=== PATIENT | male | born 2005 | race Caucasian/White ===

== ENCOUNTER → 2024-09-14 12:50 | Outpatient (REF) | payer BC, SELFPAY | LOC: HWRCS 12:50 | PROVIDERS: ATTENDING PHYSICIAN Internal Medicine Interventional Cardiology; FAMILY PHYSICIAN Family Medicine | DX: R00.2 Palpitations (principal) | CPT/HCPCS: 93306 ==

== ENCOUNTER → 2024-11-15 13:24 | Outpatient (REF) | payer BC, SELFPAY | LOC: RCS 13:24 | PROVIDERS: ATTENDING PHYSICIAN Nurse Practitioner; FAMILY PHYSICIAN Family Medicine | DX: R00.2 Palpitations (principal); R07.89 Other chest pain | CPT/HCPCS: 93017; 93350 ==

== ENCOUNTER 2024-12-22 01:33 | Emergency (ER) | payer BC, SELFPAY ==
[2024-12-22 01:38] VITALS: BP 149/87
[2024-12-22 01:57] LABS: % Basophils 0.5 % (0-2); % Eosinophils 1.3 % (0-6); % Immature Granulocytes 0.3 % (0-0.5); % Lymphocytes 30.2 % (20.5-51.1); % Neutrophils 59.7 % (42.2-75.2); Absolute Eosinophils 0.1 10^3/uL (0-0.7); Absolute Lymphocytes 2.4 10^3/uL (1.2-3.4); Absolute Monocytes 0.6 10^3/uL (0.1-0.6); Absolute Neutrophils 4.7 10^3/uL (1.4-6.5); Hematocrit 43.5 % (39.0-52.0); Hemoglobin 14.6 g/dL (13.0-18.0); Mean Corp Hgb Conc. 33.6 g/dL (33.0-37.0); Mean Corpuscular Hgb 29.3 pg (27.0-31.0); Mean Corpuscular Volume 87.2 fL (80.0-94.0); Mean Platelet Volume 9.7 fL (7.4-10.4); Nucleated Red Blood Cells % 0 % (-); Platelet Count 205 10^3/uL (130-400); Red Blood Cell Count 4.99 10^6/uL (4.70-6.10); Red Cell Dist. Width 12.3 % (11.5-14.5); White Blood Cell Count 7.8 10^3/uL (4.8-10.8)
[2024-12-22 02:26] LABS: ALT (SGPT) 40 U/L (0-50); AST (SGOT) 28 U/L (17-59); Albumin 5.3 g/dl (3.5-5.0); Alkaline Phosphatase 69 U/L (38-126); Blood Urea Nitrogen 15 mg/dl (9-20); Calcium 10.4 mg/dl (8.4-10.2); Carbon Dioxide 28 mmol/L (22-30); Chloride 100 mmol/L (98-107); Glucose 110 mg/dl (70-99); Potassium 3.9 mmol/L (3.5-5.1); Sodium 141 mmol/L (135-145); Total Bilirubin 1.6 mg/dl (0.2-1.3); Total Protein 7.8 g/dl (6.3-8.2); eGFR > 60.00
[2024-12-22 02:38] LABS: Troponin I < 0.012 ng/ml
[2024-12-22 04:07] VITALS: BP 126/62
[2024-12-22 04:35] VITALS: BMI 30.4
[2024-12-22 05:00] VITALS: BP 121/54
[2024-12-22 06:00] VITALS: BP 113/55
--- NOTE | 2024-12-22 06:02 | ED.GENMED ---
History of Present Illness
General
Chief Complaint: Heart Rate Problem
Time Seen by Provider: 12/22/24 06:01
History of Present Illness
History of Present Illness:
TIME OF INITIAL ENCOUNTER: 6:05 AM
HPI: The patient presents with palpitations. He states that he had two Holter monitors in the past which showed a lot of PACs and PVCs. He estimates that he had about 400 ectopic beats yesterday. He was on metoprolol but states that this caused
him to have higher blood pressure. Losartan was added. He was later switched to Bystolic 5 mg daily. He continues to take 5 mg of Bystolic and losartan. Currently he overall feels improved in the Emergency Department spontaneously. He states he
had a stress echo that was unremarkable.
EXAM:
GENERAL: Well appearing in no distress
HEENT: Moist oral mucosa
CARDIOVASCULAR: No murmurs, normal heart rate, regular rhythm, No chest wall tenderness
PULMONARY: No respiratory distress, breath sounds are clear and equal
ABDOMEN: Soft with no peritoneal signs, no tenderness
NEUROLOGIC: Excellent strength all extremities, no coordination deficits
PSYCHIATRIC: Appropriate mental status, normal insight and judgement
EXTREMITIES: Nontender, no edema, moves all extremities equally
SKIN: No rash, no lesions
NUMBER AND COMPLEXITY OF PROBLEMS ADDRESSED AT THE ENCOUNTER
� Chronic conditions affecting care: Childhood asthma, PACs/PVCs
� Acute Exacerbation and/or Progression of Chronic Illness: This is an acute exacerbation of chronic problem
� Differential Diagnosis includes: PACs, PVCs, electrolyte abnormality, dehydration
AMOUNT AND/OR COMPLEXITY OF DATA TO BE REVIEWED AND ANALYZED
� I performed an independent evaluation of and my interpretation is:
EKG: Sinus 90, baseline artifact, nonspecific ST abnormality with no old to compare
CT:
X-rays:
Laboratory Studies: CBC, chemistries unremarkable however total bili is 1.6 with normal transaminases and alk phos, troponin less than 0.012
Other:
� Review of other/old records: Echo in August 2024 showed top normal LV wall thickness and EF of 65 to 70% otherwise valves are normal
� Clinical information was obtained by an independent historian: None needed
� Prescriptions/Medications Considered but not given: Considered switching back to metoprolol but will continue Bystolic
� Further testing considered but not performed:
RISK OF COMPLICATIONS AND/OR MORBIDITY OR MORTALITY OF PATIENT MANAGEMENT
� Social determinants of health affecting care: Lives at home
� Discussion with other providers:
� Escalation of care including admission/observation vs risk of discharge considered: The patient has an upcoming appointment with cardiology in March. We talked about having him double the Bystolic dose however his blood
pressure and heart rate are borderline I told him to use caution if he were to double the dose 10 mg. He had rare PACs and PVCs in the Emergency Department during my evaluation.
ANY OTHER UPDATES:
Phy Exam
Physical Exam
Physical Exam:
See HPI
Course
Orders/Labs/Results
Orders:
Orders
12/22/24 01:42
Electrocardiogram (*1) Urgent
Reason for Study: Palpitations
EKG- Treatment ONCE
12/22/24 01:51
Complete Blood Count/With Diff Urgent
Comprehensive Metabolic Panel Stat
Troponin I Urgent
Abnormal Lab Results
12/22/24
01:51
Glucose 110 H mg/dl
(70-99)
Calcium 10.4 H mg/dl
(8.4-10.2)
Total Bilirubin 1.6 H mg/dl
(0.2-1.3)
Albumin 5.3 H g/dl
(3.5-5.0)
12/22/24 01:51
12/22/24 01:51
Vital Signs
Initial and Last Documented VS:
Initial Vital Signs
Temp Pulse Resp BP Pulse Ox
36.8 C 88 16 149/87 98
12/22/24 01:38 12/22/24 01:38 12/22/24 01:38 12/22/24 01:38 12/22/24 01:38
Last Documented Vital Signs
Temp Pulse Resp BP Pulse Ox
36.7 C 86 31 126/62 98
12/22/24 04:35 12/22/24 04:30 12/22/24 04:30 12/22/24 04:07 12/22/24 04:35
*Critical Care Note
Total Time (30-74mins, 75-104mins- exclusive of procedures): Not Applicable
ED Attending Note
-
Portions of this chart may have been created with voice recognition software.� Occasional wrong word or��sound alike� substitutions may have occurred due to the inherent limitations of voice recognition software.
Discharge Plan
Departure
Patient Disposition: Home (Routine Discharge)
Date of Disposition: 12/22/24
Time of Disposition: 06:15
Patient with high blood pressure during this ER visit?: Yes
Discharge Problem:
Palpitations
Instructions: Palpitations (DC), BLOOD PRESSURE
Prescriptions:
No Action
cetirizine [Zyrtec] 10 mg Tablet
10 mg PO DAILY PRN (Reason: allergies)
acetaminophen 325 mg Tablet
650 mg PO Q4HPRN PRN (Reason: mild pain) Qty: 30 0RF
ibuprofen 400 mg Tablet
400 mg PO Q6HPRN PRN (Reason: moderate pain) Qty: 30 0RF
oxycodone 5 mg Tablet
5 mg PO Q4HPRN PRN (Reason: severe pain) Qty: 10 0RF
Referrals:
Pierre Donaldson MD [Family Provider] -
Activity Restrictions/Additional Instructions:
On the monitor, you had rare PACs and PVCs. Your blood pressure was initially slightly high at the end was normal prior to discharge. Your heart rate had been in the 80s and then 60s. You could consider doubling the Bystolic dose up to 10 mg
daily (you could take 2 pills at the same time and see how you feel). 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
Interventions
Interventions:
*Risk Screen - Suicide Last Done: 12/22/24 01:38
*General Assessment Last Done: 12/22/24 04:35
*Neglect/Abuse Screening Last Done: 12/22/24 04:35
ED- Fall Risk Assessment Last Done: 12/22/24 04:35
*ED COVID-19 Vaccine History Last Done: 12/22/24 04:35
ED- Cardiac Assessment Last Done: 12/22/24 04:35
ED- Pulmonary Assessment Last Done: 12/22/24 04:35
Discharge Date and Time
Print Language: NEPALI
== END 2024-12-22 06:34 | disposition home or self-care (01) ==
LOC: EMR 01:33
PROVIDERS: Student in an Organized Health Care Education/Training Program; EMERGENCY PHYSICIAN Emergency Medicine; FAMILY PHYSICIAN Family Medicine
DX: R00.2 Palpitations (principal); R03.0 Elevated blood-pressure reading, without diagnosis of hypertension
CPT/HCPCS: 99284; 80053; 84484; 85025; 93005

== ENCOUNTER 2025-03-28 22:23 | Emergency (ER) | payer BC, SELFPAY ==
[2025-03-28 22:26] VITALS: BP 148/84
[2025-03-28 22:47] LABS: % Basophils 0.5 % (0-2); % Eosinophils 1.7 % (0-6); % Immature Granulocytes 0.2 % (0-0.5); % Lymphocytes 30.4 % (20.5-51.1); % Monocytes 8.5 % (1.7-9.3); % Neutrophils 58.7 % (42.2-75.2); Absolute Basophils 0.1 10^3/uL (0-0.2); Absolute Eosinophils 0.2 10^3/uL (0-0.7); Absolute Lymphocytes 2.9 10^3/uL (1.2-3.4); Absolute Monocytes 0.8 10^3/uL (0.1-0.6); Absolute Neutrophils 5.7 10^3/uL (1.4-6.5); Hematocrit 46.6 % (39.0-52.0); Hemoglobin 16.3 g/dL (13.0-18.0); Mean Corpuscular Hgb 29.6 pg (27.0-31.0); Mean Corpuscular Volume 84.7 fL (80.0-94.0); Mean Platelet Volume 9.9 fL (7.4-10.4); Nucleated Red Blood Cells % 0 % (-); Platelet Count 214 10^3/uL (130-400); White Blood Cell Count 9.6 10^3/uL (4.8-10.8)
[2025-03-28 23:02] LABS: ALT (SGPT) 49 U/L (0-50); AST (SGOT) 33 U/L (17-59); Albumin 5.4 g/dl (3.5-5.0); Alkaline Phosphatase 73 U/L (38-126); Blood Urea Nitrogen 12 mg/dl (9-20); Calcium 10.2 mg/dl (8.4-10.2); Carbon Dioxide 25 mmol/L (22-30); Chloride 106 mmol/L (98-107); Glucose 96 mg/dl (70-99); Lipase 73 U/L (23-300); Sodium 143 mmol/L (135-145); Total Bilirubin 1.2 mg/dl (0.2-1.3); Total Protein 8.7 g/dl (6.3-8.2); eGFR > 60.00
--- NOTE | 2025-03-29 00:21 | ED.GENMED ---
History of Present Illness
General
Chief Complaint: Abdominal Symptoms
Source: patient
Exam Limitations: none
Time Seen by Provider: 03/29/25 00:17
Nursing documentation reviewed up to this point in time: agreed with
History of Present Illness
History of Present Illness:
This is a 19-year-old male with a past medical history of cholecystitis who presents to the emergency department today with concerns of abdominal pain. Patient reports that he feels on the right side of his abdomen and compares it to when he had
biliary colic and sludge. He has since had his gallbladder removed. Patient also feels like a few days ago, he started to notice yellowing of his whites of his eyes. Patient has no nausea or vomiting associated with this. He has no fevers or
chills. He denies any radiation of the pain to the back. He denies any sick contacts. Patient reports that the pain seems to get worse after eating and when he eats, he feels very full and feels bloated. Since starting, the severity of the pain
is improved but he feels like the pain is lingering and he also feels like he has been more fatigued recently and feels generalized brain fog. Patient denies any paresthesias, difficulty ambulating, headaches, neck pain. Patient denies any visual
changes.
Review of Systems
Review of Systems
All Other Systems: ROS reviewed and negative except as documented in HPI and ROS
Phy Exam
Physical Exam
Physical Exam:
General: Patient is well appearing and in no acute distress; non-toxic
Skin: Warm and dry, no rashes or lesions
Head: Normocephalic, atraumatic
Eyes: Sclera non-icteric. EOMs intact.
Cardiac: Regular rate and rhythm, no murmurs
Pulm: Normal respiratory effort, no wheezes, rales, rhonchi
Abdomen: Generalized abdominal tenderness palpation but no guarding, abdomen soft, normoactive bowel sounds
Neuro: CN II-XII intact, no focal neurologic deficits.
Psychiatric: Appropriate mood and affect.
Course
Orders/Labs/Results
Orders:
Orders
03/28/25 22:28
IV Insert/Care/Rem.- Treatment PRN
03/28/25 22:40
Complete Blood Count/With Diff Urgent
Comprehensive Metabolic Panel Urgent
Lipase Urgent
03/29/25 00:38
CT Abd/pel Without Iv Or Oral Urgent
Comment: pt allergic to contrast, difficulty breathing, ok to change per PA
Reason For Exam: diffuse abdominal pain
0.9% Sodium Chloride 500 ml [Nss] 500 ml IV BOLUS
Ketorolac [Toradol] 15 mg IV NOW STA
Ondansetron Injectable [Zofran] 4 mg IV NOW STA
Abnormal Lab Results
03/28/25
22:40
Absolute Monos (auto) 0.8 H 10^3/uL
(0.1-0.6)
Total Protein 8.7 H g/dl
(6.3-8.2)
Albumin 5.4 H g/dl
(3.5-5.0)
03/28/25 22:40
03/28/25 22:40
Vital Signs
Initial and Last Documented VS:
Initial Vital Signs
Temp Pulse Resp BP Pulse Ox
97.6 F 81 19 148/84 98
03/28/25 22:26 03/28/25 22:26 03/28/25 22:26 03/28/25 22:26 03/28/25 22:26
Last Documented Vital Signs
Temp Pulse Resp BP Pulse Ox
97.6 F 81 19 105/56 97
03/28/25 22:26 03/28/25 22:26 03/28/25 22:26 03/29/25 04:00 03/29/25 04:30
MDM/Problems Addressed
Differential Diagnosis Includes:
Differentials include stratus, GERD, choledocholithiasis, gastroenteritis, IBS
MDM/Problems Addressed:
This is a 19-year-old male with past ministry of asthma who presents emergency department today with concerns of diffuse abdominal pain, and feelings of brain fog. Patient also notes that he had scleral icterus a few days ago which resolved. On
physical exam, he is well-appearing no acute distress. His abdomen is soft but he does have some upper abdominal tenderness. His vitals are stable, he is afebrile. Did offer Toradol for pain but he refused. Zofran did help with nausea. No
identifiable causes of brain fog however in light of normal labs, did recommend following up with primary care provider. In light of his pain being worse after eating and having sensation of fullness in his upper abdomen,, I did recommend a trial
of pantoprazole for 2 weeks. Patient does have a gastroenterology appointment next month for follow-up. Patient stable for discharge per
Chronic conditions affecting care:
asthma
*Pulse Oximetry
Patient hypoxic: no
*Critical Care Note
Total Time (30-74mins, 75-104mins- exclusive of procedures): Not Applicable
Data Reviewed
Review of Other/Old Records Reveals: Records (Reviewed discharge summary from 06/28/2022 patient seen for biliary colic had passed medical history of abdominal pain was seen in the ER had elevated liver enzymes was found to have gallstone
pancreatitis) and Discharge Summary (Reviewed discharge summary from 06/28/2022 patient seen for biliary colic was found to have gallstone pancreatitis)
ED Attending Note
-
Portions of this chart may have been created with voice recognition software.� Occasional wrong word or��sound alike� substitutions may have occurred due to the inherent limitations of voice recognition software.
Discharge Plan
Departure
Patient Disposition: Home (Routine Discharge)
Date of Disposition: 03/29/25
Time of Disposition: 04:29
Patient with high blood pressure during this ER visit?: Yes
Condition: Good
Discharge Problem:
Abdominal pain
Instructions: Abdominal Pain, BLOOD PRESSURE
Prescriptions:
New
pantoprazole 20 mg tablet,delayed release (DR/EC)
20 mg PO DAILY 14 Days Qty: 14 0RF
No Action
cetirizine [Zyrtec] 10 mg Tablet
10 mg PO DAILY PRN (Reason: allergies)
acetaminophen 325 mg Tablet
650 mg PO Q4HPRN PRN (Reason: mild pain) Qty: 30 0RF
ibuprofen 400 mg Tablet
400 mg PO Q6HPRN PRN (Reason: moderate pain) Qty: 30 0RF
oxycodone 5 mg Tablet
5 mg PO Q4HPRN PRN (Reason: severe pain) Qty: 10 0RF
Referrals:
Pierre Donaldson MD [Family Provider, Family Practice]
Activity Restrictions/Additional Instructions:
Pantoprazole has been sent to your pharmacy. Please take 1 tablet once daily for 2-week trial. Please follow-up with gastroenterology next month.
PLEASE RETURN EMERGENCY DEPARTMENT SHOULD YOU DEVELOP ACUTE WORSENING OF YOUR SYMPTOMS, DIZZINESS,, FEVERS OR CHILLS, INTRACTABLE NAUSEA OR VOMITING, LIGHTHEADEDNESS, HEADACHE, CHEST PAIN, PAIN SPELLS, OR ANY OTHER SIGNS OR SYMPTOMS WORRISOME TO YOU.
Interventions
Interventions:
*Risk Screen - Suicide Last Done: 03/28/25 22:26
*General Assessment Last Done: 03/29/25 01:01
*Neglect/Abuse Screening Last Done: 03/28/25 22:26
*ED- Fall Risk Assessment Last Done: 03/29/25 01:01
*ED COVID-19 Vaccine History Last Done: 03/29/25 01:01
*Nursing Disposition Last Done: 03/29/25 04:50
HN-Zzjgrp-Qajzxyrydw Assessment Last Done: 03/29/25 01:01
Discharge Date and Time
Discharge Date/Time: 03/29/25 04:56
Print Language: BAHAMIAN
[2025-03-29 00:55] VITALS: BP 120/76
[2025-03-29] MEDS: NSS 500 IV (00:55)
[2025-03-29] MEDS: ZOFRAN 4 MG IV (00:56)
[2025-03-29 01:00] VITALS: BP 122/67; BMI 30.2
[2025-03-29 02:00] VITALS: BP 124/67
[2025-03-29 03:02] VITALS: BP 130/66
[2025-03-29 04:00] VITALS: BP 105/56
== END 2025-03-29 04:56 | disposition home or self-care (01) ==
LOC: EMR 22:23
PROVIDERS: Emergency Medicine; EMERGENCY PHYSICIAN Student in an Organized Health Care Education/Training Program; FAMILY PHYSICIAN Family Medicine
DX: R10.84 Generalized abdominal pain (principal); R11.0 Nausea; J45.909 Unspecified asthma, uncomplicated; Z90.49 Acquired absence of other specified parts of digestive tract
CPT/HCPCS: 96374; 96361; 99284; 74176; 80053; 83690; 85025